=== PATIENT | male | born 1960 | race Caucasian/White ===

== ENCOUNTER → 2017-04-13 | Outpatient (CLI) | payer MEDICARE, BC ==
--- NOTE | 2017-04-13 14:45 | XR ---
EXAMINATION TYPE: XR lumbosacral spine min 4V DATE OF EXAM: 04/13/2017 COMPARISON: NONE HISTORY: Back pain radiating into legs TECHNIQUE: 5 view cervical spine FINDINGS: There is a wedge deformity of L1 with approximately 40% loss of anterior vertebral body hei ght. Disc heights are preserved. Vertebral body heights are preserved. Alignment is normal. No spondylolyt ic defects are evident facets are within normal limits. IMPRESSION: 1. 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
== END | disposition home or self-care (01) ==
LOC: RADXRMAIN 14:21
PROVIDERS: ATTEND Physical Medicine & Rehabilitation
DX: M48.56XA Collapsed vertebra, not elsewhere classified, lumbar region, initial encounter for fracture (principal)
CPT/HCPCS: 72110

== ENCOUNTER → 2018-07-13 | Outpatient (CLI) | payer MEDICARE, BC | END | disposition home or self-care (01) | LOC: LABMAIN 16:52 | PROVIDERS: ATTEND Internal Medicine | DX: Z53.9 Procedure and treatment not carried out, unspecified reason (principal) ==

== ENCOUNTER → 2018-07-30 | Outpatient (CLI) | payer MEDICARE, BC ==
--- NOTE | 2018-07-30 16:14 | US ---
EXAMINATION TYPE: US kidneys/renal and bladder DATE OF EXAM: 07/30/2018 COMPARISON: US 06/06/2016 CLINICAL HISTORY: N18.3 Chronic Kidney Disease. Difficult and limited exam due to overlying bowel gas EXAM MEASUREMENTS: Right Kidney: 10.2 x 4.4 x 4.2 cm Left Kidney: 11.2 x 4.7 x 4.8 cm Right Kidney: No hydronephrosis or masses seen . Mild cortical renal thinning. Left Kidney: Limited visualization due to overlying bowel gas. No hydronephrosis visualized. Mild co rtical renal thinning. Bladder: wnl as visualized, not fully distended Bilateral Jets seen: Yes There is no evidence for hydronephrosis at this point in time. The urinary bladder is anechoic. Bi lateral ureteral jets are seen. IMPRESSION: No hydronephrosis or nephrolithiasis. Mild cortical renal thinning of medical renal disease bilateral ly.
== END | disposition home or self-care (01) ==
LOC: RADUSWWP 14:42
PROVIDERS: ATTEND Internal Medicine
DX: N28.9 Disorder of kidney and ureter, unspecified (principal); N18.3 Chronic kidney disease, stage 3 (moderate)
CPT/HCPCS: 76770

== ENCOUNTER 2018-08-08 17:02 | Emergency (ER) | payer MEDICARE, BC ==
[2018-08-08 17:31] VITALS: RESP 18
--- NOTE | 2018-08-08 18:58 | ED ---
Abdominal Pain HPI - General Chief Complaint: Abdominal Pain Stated Complaint: abd pain Time Seen by Provider: 08/08/18 18:27 Source: patient, RN notes reviewed Mode of arrival: ambulatory Limitations: no limitations - History of Present Illness Initial Comments: This is a 57-year-old male who presents to the emergency department with chief complaint of left flank and abdominal pain. Patient states the pain developed today. He reports a constant dull ache with a "poking" with any movement. He denies fevers or chills, chest pain or shortness of breath, nausea or vomiting. Yesterday he had one episode of diarrhea. He denies urinary symptoms such as dysuria, hematuria, increased urinary frequency. - Related Data Home Medications Medication Instructions Recorded Confirmed LORazepam [Ativan] 1 mg PO HS PRN 05/21/14 08/08/18 Tapentadol HCl [Nucynta ER] 150 mg PO BID 05/21/14 08/08/18 Gabapentin [Neurontin] 300 mg PO BID 05/28/15 08/08/18 HYDROcodone/APAP 10-325MG [[place] 1 tab PO Q6H PRN 06/28/16 08/08/18 10-325] Prochlorperazine [Compazine] 10 mg PO Q6H PRN 06/28/16 08/08/18 Albuterol Inhaler [Ventolin Hfa 1 - 2 puff INHALATION RT-Q6H PRN 07/07/16 Inhaler] Ascorbic Acid [Vitamin C] 1,500 mg PO DAILY 07/07/16 08/08/18 Calcium Citrate 500 mg PO TID 07/07/16 08/08/18 Efavirenz/Emtricitab/Tenofovir 1 tab PO HS 07/07/16 08/08/18 [Atripla Tablet] Fluticasone Nasal [place] [Flonase 2 spray EA NOSTRIL DAILY PRN 07/07/16 08/08/18 Nasal [place]] Multivitamins, Thera [Multivitamin 1 tab PO DAILY 07/07/16 08/08/18 (formulary)] [place]-3 Fatty Acids/Fish Oil [Fish 2 cap PO DAILY 07/07/16 08/08/18 Oil 1,000 mg Softgel] Alendronate Sodium [Fosamax] 70 mg PO TU 08/08/18 08/08/18 Carboxymethylcellulose Sodium 15 ml LEFT EYE DAILY PRN 08/08/18 08/08/18 [Refresh Tears] Cholecalciferol (Vitamin D3) 2,000 unit PO DAILY 08/08/18 08/08/18 [Vitamin D3] Clindamycin Topical Soln 1 applic TOPICAL DAILY 08/08/18 08/08/18 [Cleocin-T Topical Soln] Famotidine [Pepcid] 20 mg PO DAILY 08/08/18 08/08/18 Ibuprofen [Advil] 400 - 800 mg PO Q8HR PRN 08/08/18 08/08/18 Promethazine [Phenergan] 25 mg PO Q6H PRN 08/08/18 08/08/18 Sertraline [Zoloft] 50 mg PO DAILY 08/08/18 08/08/18 diphenhydrAMINE [Benadryl] 25 mg PO HS PRN 08/08/18 08/08/18 Allergies Allergy/AdvReac Type Severity Reaction Status Date / Time Sulfa (Sulfonamide Allergy Rash/Hives Verified 08/08/18 18:41 Antibiotics) Review of Systems ROS Statement: Those systems with pertinent positive or pertinent negative responses have been documented in the HPI. ROS Other: All systems not noted in ROS Statement are negative. Past Medical History Past Medical History: COPD, GERD/Reflux, Osteoarthritis (OA), Skin Disorder Additional Past Medical History / Comment(s): Hx arrhythmia- not sure which rhythm History of Any Multi-Drug Resistant Organisms: None Reported Past Surgical History: Orthopedic Surgery Additional Past Surgical History / Comment(s): ORIF rt shoulder, nerve blocks to back,colonoscopy Additional Past Anesthesia/Blood Transfusion Reaction / Comment(s): states "has difficult time waking up with anesthesia".no hx blood transfusion. Past Psychological History: No Psychological Hx Reported Smoking Status: Current every day smoker Past Alcohol Use History: Occasional Past Drug Use History: None Reported - Past Family History Mother Family Medical History: Diabetes Mellitus Additional Family Medical History / Comment(s): arrhythmia,Crohn's Father History Unknown: Yes General Exam - General Exam Comments Initial Comments: General: Awake and alert, well-developed; in no apparent distress. HEENT: Head atraumatic, normocephalic. Pupils are equal, round and reactive to light. Extraocular movements intact. Oropharynx moist without erythema or exudate. Neck: Supple. Normal ROM. Cardiovascular: Regular rate and rhythm. No murmurs, rubs or gallops. Chest symmetrical. Respiratory: Lungs clear to auscultation bilaterally. No wheezes, rales or rhonchi. Normal respiratory effort with no use of accessory muscles. Abdomen: Soft, non-distended. Tenderness on palpation of left mid abdomen and left flank with guarding. No rigidity or rebound. Normal bowel sounds in all 4 quadrants. Musculoskeletal: Normal ROM, no tenderness bilateral upper and lower extremities. Skin: [place], warm and dry without rashes or lesions. Neurological: Alert and oriented x3. CN II-XII grossly intact. Speech is fluent and answers are appropriate. No focal neuro deficits. Psychiatric: Normal mood and affect. No overt signs of depression or anxiety noted. Limitations: no limitations Course Vital Signs 08/08/18 08/08/18 08/08/18 17:27 18:30 19:00 Temperature 98.7 F Pulse Rate 91 Respiratory 18 18 18 Rate Blood Pressure 94/73 104/75 O2 Sat by Pulse 98 97 99 Oximetry 08/08/18 08/08/18 08/08/18 19:30 21:00 22:00 Temperature Pulse Rate Respiratory 18 Rate Blood Pressure 97/66 99/70 97/69 O2 Sat by Pulse 99 98 Oximetry 08/08/18 08/09/18 23:00 00:03 Temperature 97.8 F Pulse Rate 75 Respiratory 18 Rate Blood Pressure 97/69 150/70 O2 Sat by Pulse 98 Oximetry - Reevaluation(s) Reevaluation #1: A computed tomography scan of the brain and pelvis was accidentally ordered by myself. A CT of the abdomen and pelvis was meant to be ordered, however the wrong box was checked. Patient reports that he did question the CT techs why they were scanning his brain. I spoke with the techs who performed the test; stated that they were also a bit confused but patient complained of his ears being plugged so thought that the CT of the brain and C-spine was not an inaccurate order. They followed through with the test, although this was unnecessary.I spoke with attending physicians, Dr. Prescott and Dr. Gorman to make them aware of this issue. I also spoke with the CT department to address not having patient charged for this unnecessary test. I spoke with patient who is in agreement for the correct test to be performed at this time. 08/08/18 22:44 Medical Decision Making - Medical Decision Making This is a 57-year-old male who presents to the emergency department with chief complaint of left sided abdominal pain. Patient reports that the pain started today. He describes it as a dull ache and feels "poking" with movement. On initial evaluation, patient was tender to the left side of the abdomen and flank. Laboratory studies revealed no significant abnormalities. Creatinine is is elevated, however this is consistent with patient's previous laboratory studies. On reevaluation, patient continued to complain of pain, but only with movement. I reexamined the patient and there appears to be a significant amount of pain on palpation of the left lower ribs as opposed to the abdomen. Case was discussed with attending physician, Dr. Gorman. Patient was sent for a computed tomography scan of the abdomen and pelvis without contrast. This revealed calcified gallstones but no cause for left-sided pain. Patient was evaluated by Dr. Gorman. He is in agreement that pain is from the chest wall. He will be discharged home at this time. Vitals are stable and patient is in no acute distress. Patient is instructed to follow up with his primary care provider. He is in agreement with plan and voices understanding. All questions answered. - Lab Data Result diagrams: 08/08/18 19:09 08/08/18 19:09 Lab Results 08/08/18 08/08/18 08/08/18 Range/Units 19:09 19:09 20:25 WBC 5.4 (3.8-10.6) k/uL RBC 4.26 L (4.30-5.90) m/uL Hgb 14.2 (13.0-17.5) gm/dL Hct 43.5 (39.0-53.0) % MCV 102.1 H (80.0-100.0) fL MCH 33.3 (25.0-35.0) pg MCHC 32.6 (31.0-37.0) g/dL RDW 14.8 (11.5-15.5) % Plt Count 311 (150-450) k/uL Neutrophils % 66 % Lymphocytes % 24 % Monocytes % 5 % Eosinophils % 3 % Basophils % 1 % Neutrophils # 3.6 (1.3-7.7) k/uL Lymphocytes # 1.3 (1.0-4.8) k/uL Monocytes # 0.3 (0-1.0) k/uL Eosinophils # 0.1 (0-0.7) k/uL Basophils # 0.0 (0-0.2) k/uL Macrocytosis Slight Sodium 142 (137-145) mmol/L Potassium 4.3 (3.5-5.1) mmol/L Chloride 111 H (98-107) mmol/L Carbon Dioxide 23 (22-30) mmol/L Anion Gap 8 mmol/L BUN 13 (9-20) mg/dL Creatinine 1.84 H (0.66-1.25) mg/dL Est GFR (CKD-EPI)AfAm 46 (>60 ml/min/1.73 sqM) Est GFR (CKD-EPI)NonAf 40 (>60 ml/min/1.73 sqM) Glucose 87 (74-99) mg/dL Calcium 8.3 L (8.4-10.2) mg/dL Total Bilirubin 0.3 (0.2-1.3) mg/dL AST 26 (17-59) U/L ALT 33 (21-72) U/L Alkaline Phosphatase 105 (38-126) U/L Total Protein 7.0 (6.3-8.2) g/dL Albumin 3.6 (3.5-5.0) g/dL Amylase 60 (30-110) U/L Lipase 235 (23-300) U/L Urine Color Light Yellow Urine Appearance Clear (Clear) Urine pH 7.5 (5.0-8.0) Ur Specific [place] 1.008 (1.001-1.035) Urine Protein 1+ H (Negative) Urine Glucose (UA) 2+ H (Negative) Urine Ketones Negative (Negative) Urine Blood Trace H (Negative) Urine Nitrite Negative (Negative) Urine Bilirubin Negative (Negative) Urine Urobilinogen <2.0 (<2.0) mg/dL Ur Leukocyte Esterase Negative (Negative) Urine WBC 1 (0-5) /hpf Ur Squamous Epith Cells <1 (0-4) /hpf Urine Bacteria Rare H (None) /hpf - Radiology Data Radiology results: report reviewed X-ray KUB impression: Nonacute abdomen. CT abdomen and pelvis without contrast impression: Small calcified gallstones. Pulmonary fibrotic changes at the lung bases. I do not see a cause for left- sided pain. Disposition Clinical Impression: Abdominal pain Disposition: HOME SELF-CARE Condition: Good Instructions: Abdominal Pain (ED) Additional Instructions: Please follow up with primary care provider within 1-2 days. Return to emergency department if symptoms should worsen or any concerns arise. Is patient prescribed a controlled substance at d/c from ED?: No Referrals: Brett Angel MD [Primary Care Provider] - 1-2 days Time of Disposition: 23:54
[2018-08-08 19:59] LABS: Basophils % (A) 1 %; Eosinophils # (A) 0.1 k/uL (0-0.7); Eosinophils % (A) 3 %; HCT 43.5 % (39.0-53.0); HGB 14.2 gm/dL (13.0-17.5); Lymphocytes # (A) 1.3 k/uL (1.0-4.8); Lymphocytes % (A) 24 %; MCH 33.3 pg (25.0-35.0); MCHC 32.6 g/dL (31.0-37.0); MCV 102.1 fL (80.0-100.0); Macrocytosis Slight; Mean Platelet Volume 6.9; Monocytes # (A) 0.3 k/uL (0-1.0); Monocytes % (A) 5 %; Neutrophils # (A) 3.6 k/uL (1.3-7.7); Neutrophils % (A) 66 %; Platelet Count 311 k/uL (150-450); RBC 4.26 m/uL (4.30-5.90); RDW 14.8 % (11.5-15.5); WBC 5.4 k/uL (3.8-10.6)
[2018-08-08 20:09] LABS: Albumin 3.6 g/dL (3.5-5.0); Calcium 8.3 mg/dL (8.4-10.2); Potassium 4.3 mmol/L (3.5-5.1); Total Bilirubin 0.3 mg/dL (0.2-1.3)
--- NOTE | 2018-08-08 20:51 | XR ---
EXAMINATION TYPE: XR KUB DATE OF EXAM: 08/08/2018 COMPARISON: NONE HISTORY: Left lower quadrant pain TECHNIQUE: 2 views FINDINGS: There is no sign of intestinal obstruction or pneumoperitoneum. Fecal pattern is normal. Th ere are no pathologic calcifications over the kidneys. IMPRESSION: Nonacute abdomen.
[2018-08-08 20:54] LABS: Appearance,Urine Clear (Clear); Bacteria,Urine Rare /hpf; Bilirubin,Urine Negative (Negative); Blood,Urine Trace (Negative); Color,Urine Light Yellow; Glucose,Urine (UA) 2+ (Negative); Ketones,Urine Negative (Negative); Leukocyte Esterase,Urine Negative (Negative); Nitrite,Urine Negative (Negative); PH, Urine 7.5 (5.0-8.0); Protein,Urine 1+ (Negative); Specific Gravity,Urine 1.008 (1.001-1.035); Squamous Epithelial Cell,Urine <1 /hpf (0-4); Urobilinogen,Urine <2.0 mg/dL (<2.0); WBC,Urine 1 /hpf (0-5)
--- NOTE | 2018-08-08 22:06 | CT ---
EXAMINATION TYPE: CT brain dex cristina con DATE OF EXAM: 08/08/2018 COMPARISON: 12/21/2010 HISTORY: Left sided ear pain and hearing loss. CT DLP: 944.3 mGycm Automated exposure control for dose reduction was used. TECHNIQUE: CT scan of the head and cervical spine are performed without contrast. FINDINGS: There is cerebral cortical atrophy. There is no mass effect or midline shift. There is no sign of intracranial hemorrhage. The calvarium is intact. Cervical vertebra have normal alignment. There is 50% compression deformity of C7 vertebral body with biconcave deformity consistent with osteomalacia. I see no acute fracture. The facet joints are inta ct. Skull base appears intact. There is 50% wedging of T3 and T4 vertebral bodies. There is 30% compr ession of T5. There is biconcave deformity consistent with osteomalacia. IMPRESSION: Cerebral atrophy. No acute intracranial abnormality. No change. Multiple old cervical and thoracic compression fractures. No acute fracture seen of the cervical spin e. No change.
--- NOTE | 2018-08-08 23:20 | CT ---
EXAMINATION TYPE: CT abdomen pelvis wo con DATE OF EXAM: 08/08/2018 COMPARISON: None HISTORY: Left sided pain. CT DLP: 371.9 mGycm Automated exposure control for dose reduction was used. TECHNIQUE: Helical acquisition of images was performed from the lung bases through the pelvis. FINDINGS: There is coarse interstitial infiltrate at both lung bases. There is probably pulmonary fibrosis. The re is no pleural effusion. There is small hiatal hernia. The remainder of the stomach appears normal. There is some calcificatio n of the pericardium. Liver spleen appear normal. There is no evidence of pancreatic mass. Bile ducts are not dilated. Gallbladder is contracted with 2 small calcified gallstones. There is no adrenal mass. Kidneys have normal size and contour. There is no hydronephrosis. Ureters a re not dilated. I see no intestinal wall thickening. There are no dilated loops. There is no mesenter ic adenopathy. There is no mesenteric edema. There is no inguinal hernia. Bladder distends smoothly. There is no pelvic mass. There is no free fluid in the pelvis. There is no evidence of free air. There is osteopenia. There is biconcave deformity of numerous lumbar vertebra. This is consistent with osteomalacia and multiple compression fractures. IMPRESSION: SMALL CALCIFIED GALLSTONES. PULMONARY FIBROTIC CHANGES AT THE LUNG BASES. I DO NOT SEE A CAUSE FOR LE FT-SIDED PAIN.
[2018-08-09 00:03] VITALS: BP 150/70; PULSE 75; TEMP 97.8
== END 2018-08-09 00:03 | disposition home or self-care (01) ==
LOC: EC 17:02
DX: R10.9 Unspecified abdominal pain (principal); K80.20 Calculus of gallbladder without cholecystitis without obstruction; J44.9 Chronic obstructive pulmonary disease, unspecified; K21.9 Gastro-esophageal reflux disease without esophagitis; Z79.899 Other long term (current) drug therapy; Z88.2 Allergy status to sulfonamides
CPT/HCPCS: 36415; 70450; 72125; 74018; 74176; 80053; 81001; 82150; 83690; 85025; 99284

== ENCOUNTER → 2018-10-08 | Outpatient (CLI) | payer MEDICARE, BC ==
[2018-10-08 14:30] LABS: HCT 47.3 % (39.0-53.0); HGB 14.9 gm/dL (13.0-17.5); MCH 33.2 pg (25.0-35.0); MCHC 31.5 g/dL (31.0-37.0); MCV 105.5 fL (80.0-100.0); Macrocytosis Moderate; Mean Platelet Volume 6.5; Platelet Count 269 k/uL (150-450); RBC 4.48 m/uL (4.30-5.90); RDW 15.8 % (11.5-15.5); WBC 6.5 k/uL (3.8-10.6)
[2018-10-08 14:40] LABS: Appearance,Urine Clear (Clear); Bilirubin,Urine Negative (Negative); Blood,Urine Small (Negative); Color,Urine Colorless; Glucose,Urine (UA) 3+ (Negative); Ketones,Urine Negative (Negative); Leukocyte Esterase,Urine Negative (Negative); Mucus,Urine Rare /hpf; Nitrite,Urine Negative (Negative); PH, Urine 6.5 (5.0-8.0); Protein,Urine 1+ (Negative); Specific Gravity,Urine 1.005 (1.001-1.035); Squamous Epithelial Cell,Urine <1 /hpf (0-4); Urobilinogen,Urine <2.0 mg/dL (<2.0); WBC,Urine <1 /hpf (0-5)
[2018-10-08 18:59] LABS: Iron Saturation 16.42 (15.00-50.00)
[2018-10-08 19:06] LABS: Vitamin D 25 Hydroxy 30.8 ng/mL (30.0-100.0)
[2018-10-08 19:34] LABS: Albumin 4.4 g/dL (3.80-4.90); Albumin/Globulin Ratio 1.83 (1.20-2.10); Anion Gap 6.3 mmol/L (4.00-12.00); Calcium 8.3 mg/dL (8.7-10.3); Carbon Dioxide 19.7 mmol/L (21.6-31.8); Globulin 2.4 g/dL (2.1-3.7); Magnesium 2.2 mg/dL (1.5-2.4); Phosphorus 1.7 mg/dL (2.4-5.1); Potassium 3.7 mmol/L (3.5-5.5); Total Bilirubin 0.3 mg/dL (0.3-1.2); Total Protein 6.8 g/dL (6.2-8.2); Uric Acid 2.2 mg/dL (3.7-8.7)
[2018-10-08 21:22] LABS: Total Protein,Urine Random 41.3 mg/dL (0.0-13.5)
[2018-10-08 21:23] LABS: Creatinine,Urine Random 32.5 mg/dL
== END ==
LOC: LABWHC1 13:41
PROVIDERS: ATTEND Internal Medicine
DX: N18.3 Chronic kidney disease, stage 3 (moderate) (principal); D63.1 Anemia in chronic kidney disease; E83.39 Other disorders of phosphorus metabolism; E55.9 Vitamin D deficiency, unspecified; M10.9 Gout, unspecified; R80.9 Proteinuria, unspecified
CPT/HCPCS: 36415; 80053; 81001; 82306; 82570; 82728; 83540; 83550; 83735; 83970; 84100; 84156; 84550; 85027

== ENCOUNTER → 2018-10-26 | Outpatient (CLI) | payer MEDICARE, BC ==
[2018-10-27 02:37] LABS: Albumin 4.4 g/dL (3.80-4.90); Albumin/Globulin Ratio 1.76 (1.20-2.10); Anion Gap 8.1 mmol/L (4.00-12.00); Calcium 8.1 mg/dL (8.7-10.3); Carbon Dioxide 22.9 mmol/L (21.6-31.8); Globulin 2.5 g/dL (1.6-3.3); Phosphorus 2.7 mg/dL (2.4-5.1); Potassium 3.7 mmol/L (3.5-5.5); Total Bilirubin 0.4 mg/dL (0.3-1.2); Total Protein 6.9 g/dL (6.2-8.2)
== END | disposition home or self-care (01) ==
LOC: LABWHC1 17:01
PROVIDERS: ATTEND Internal Medicine
DX: N18.3 Chronic kidney disease, stage 3 (moderate) (principal)
CPT/HCPCS: 36415; 80053; 84100

== ENCOUNTER 2019-01-11 19:29 | Emergency (ER) | payer OTHER, MEDICARE, BC ==
[2019-01-11 19:37] VITALS: RESP 18; TEMP 98.2
[2019-01-11 20:06] LABS: Basophils % (A) 0 %; Eosinophils # (A) 0.1 k/uL (0-0.7); Eosinophils % (A) 2 %; HCT 48.6 % (39.0-53.0); HGB 15.6 gm/dL (13.0-17.5); Lymphocytes # (A) 1.9 k/uL (1.0-4.8); Lymphocytes % (A) 29 %; MCH 34.2 pg (25.0-35.0); MCV 106.7 fL (80.0-100.0); Macrocytosis Marked; Monocytes # (A) 0.4 k/uL (0-1.0); Monocytes % (A) 6 %; Neutrophils % (A) 61 %; Platelet Count 225 k/uL (150-450); RBC 4.55 m/uL (4.30-5.90); RDW 15.8 % (11.5-15.5); WBC 6.6 k/uL (3.8-10.6)
[2019-01-11 20:15] LABS: ALT 22 U/L (21-72); AST 22 U/L (17-59); Albumin 4.1 g/dL (3.5-5.0); Alcohol <10 mg/dL; Alkaline Phosphatase 130 U/L (38-126); Anion Gap 9 mmol/L; Blood Urea Nitrogen 21 mg/dL (9-20); Calcium 8.5 mg/dL (8.4-10.2); Carbon Dioxide 17 mmol/L (22-30); Chloride 116 mmol/L (98-107); Glucose 106 mg/dL (74-99); Potassium 3.8 mmol/L (3.5-5.1); Sodium 142 mmol/L (137-145); Total Bilirubin 0.7 mg/dL (0.2-1.3); Total Protein 7.5 g/dL (6.3-8.2)
[2019-01-11 20:19] LABS: INR 0.9 (<1.2); Partial Thromboplastin Time 27.2 sec (22.0-30.0); Prothrombin Time 9.8 sec (9.0-12.0)
[2019-01-11 20:26] LABS: Troponin I <0.012 ng/mL (0.000-0.034)
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
[2019-01-11 20:43] LABS: Creatine Kinase 51 U/L (55-170)
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
[2019-01-11 20:53] LABS: Creatine Kinase MB 0.4 ng/mL (0.0-2.4)
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
[2019-01-11] MEDS ORDERED: ONDANSETRON 4 MG/2 ML VIAL IVP STA (22:10)
[2019-01-11] MEDS ORDERED: ACETAMINOPHEN TAB 500 MG TAB PO STA (22:13)
[2019-01-11 22:41] VITALS: BP 122/80; PULSE 60
== END 2019-01-11 22:40 | disposition home or self-care (01) ==
LOC: EC 19:29
DX: S20.211A Contusion of right front wall of thorax, initial encounter (principal); S20.212A Contusion of left front wall of thorax, initial encounter; N18.9 Chronic kidney disease, unspecified; M54.2 Cervicalgia; K21.9 Gastro-esophageal reflux disease without esophagitis; F17.200 Nicotine dependence, unspecified, uncomplicated; Z88.2 Allergy status to sulfonamides; Z79.891 Long term (current) use of opiate analgesic; Z79.899 Other long term (current) drug therapy; V49.49XA Driver injured in collision with other motor vehicles in traffic accident, initial encounter; Y92.410 Unspecified street and highway as the place of occurrence of the external cause
CPT/HCPCS: 36415; 86900; 86901; 80053; 82550; 82553; 84484; 85025; 85610; 85730; 86850; 80320; 72020; 72170; 71045; 72125; 99284; 96374; J2405

== ENCOUNTER → 2019-02-06 | Outpatient (CLI) | payer MEDICARE, BC ==
[2019-02-06 16:18] LABS: Appearance,Urine Clear (Clear); Bilirubin,Urine Negative (Negative); Blood,Urine Small (Negative); Color,Urine Light Yellow; Glucose,Urine (UA) 3+ (Negative); Ketones,Urine Negative (Negative); Leukocyte Esterase,Urine Negative (Negative); Mucus,Urine Rare /hpf; Nitrite,Urine Negative (Negative); PH, Urine 6.5 (5.0-8.0); Protein,Urine 2+ (Negative); RBC,Urine 1 /hpf (0-5); Specific Gravity,Urine 1.012 (1.001-1.035); Urobilinogen,Urine <2.0 mg/dL (<2.0); WBC,Urine 1 /hpf (0-5)
[2019-02-06 16:32] LABS: Anisocytosis Slight; HCT 46.7 % (39.0-53.0); HGB 14.7 gm/dL (13.0-17.5); MCH 33.5 pg (25.0-35.0); MCHC 31.4 g/dL (31.0-37.0); MCV 106.6 fL (80.0-100.0); Macrocytosis Marked; Mean Platelet Volume 7.4; Platelet Count 297 k/uL (150-450); RBC 4.38 m/uL (4.30-5.90); RDW 16.3 % (11.5-15.5); WBC 6.3 k/uL (3.8-10.6)
[2019-02-06 23:18] LABS: Anti-DNA, DS unit <1.0 IU/mL; DNA Double-Stranded NEGATIVE (NEGATIVE)
[2019-02-06 23:50] LABS: Albumin 4.3 g/dL (3.80-4.90); Albumin/Globulin Ratio 1.79 (1.60-3.17); Carbon Dioxide 18.1 mmol/L (21.6-31.8); Globulin 2.4 g/dL (1.6-3.3); Magnesium 2.3 mg/dL (1.5-2.4); Phosphorus 2.3 mg/dL (2.4-5.1); Potassium 3.4 mmol/L (3.5-5.5); Total Bilirubin 0.3 mg/dL (0.3-1.2); Total Protein 6.7 g/dL (6.2-8.2); Uric Acid 1.9 mg/dL (3.7-8.7)
[2019-02-07 00:17] LABS: Total Volume 24 Hour,Urine 3000 mL
[2019-02-07 00:21] LABS: Anion Gap 6.9 mmol/L (4.00-12.00)
[2019-02-07 00:48] LABS: Iron Saturation 22.89 (15.00-50.00)
[2019-02-07 00:51] LABS: Vitamin D 25 Hydroxy 23.9 ng/mL (30.0-100.0)
[2019-02-07 01:03] LABS: Parathyroid Hormone Intact 200.2 pg/mL (14.0-72.0)
[2019-02-07 01:38] LABS: Creatinine,Urine Random 51.2 mg/dL
[2019-02-07 01:44] LABS: Hepatitis A Antibody IgM Non-Reactive (Non-Reactive); Hepatitis B Core IgM Non-Reactive (Non-Reactive)
[2019-02-07 01:58] LABS: Total Protein,Urine Random 96.1 mg/dL (0.0-13.5)
[2019-02-07 14:01] LABS: C-ANCA <1:20 Titer (<1:20); P-ANCA <1:20 Titer (<1:20)
== END ==
LOC: LABWHC1 15:34
PROVIDERS: ATTEND Internal Medicine
DX: N18.3 Chronic kidney disease, stage 3 (moderate) (principal); R53.83 Other fatigue; D63.1 Anemia in chronic kidney disease; N39.0 Urinary tract infection, site not specified; E21.3 Hyperparathyroidism, unspecified; E55.9 Vitamin D deficiency, unspecified; M10.9 Gout, unspecified; R80.9 Proteinuria, unspecified
CPT/HCPCS: 36415; 80053; 80074; 81001; 81050; 82306; 82570; 82728; 83516; 83540; 83550; 83735; 83883; 83970; 84100; 84156; 84166; 84550; 85027; 86038; 86160; 86162; 86225; 86255; 86334

== ENCOUNTER → 2019-10-11 | Outpatient (CLI) | payer MEDICARE, BC ==
[~2019-10-11] MED LIST: DENOSUMAB 60 MG/ML 1 ML SYRINGE SQ ONE
[2019-10-11 14:17] VITALS: BP 101/67; PULSE 91; RESP 16; TEMP 98.2
== END | disposition home or self-care (01) ==
LOC: PROCWHC3 13:37
PROVIDERS: ATTEND Family Medicine
DX: M81.0 Age-related osteoporosis without current pathological fracture (principal)
CPT/HCPCS: 96372

== ENCOUNTER → 2019-10-29 | Outpatient (CLI) | payer MEDICARE, BC ==
--- NOTE | 2019-10-30 17:08 | BD ---
EXAMINATION TYPE: Axial Bone Density DATE OF EXAM: 10/29/2019 COMPARISON: NONE CLINICAL HISTORY: Height: 5 FT 3 IN Weight: 140 FRAX RISK QUESTIONS: Alcohol (3 or more units per day): NO Family History (Parent hip fracture): NO Glucocorticoids (More than 3mos): NO (Ex: prednisone, prednisolone, methylprednisolone, dexamethasone, and hydrocortisone). History of Fracture in Adulthood: YES Secondary Osteoporosis: 1. Type 1 Diabetes: NO 2. Hyperthyroidism: NO 3. Menopause before 45: NA 4. Malnutrition: NO 5. Chronic liver disease: NO Rheumatoid Arthritis: YES Current Tobacco Use: YES RISK FACTORS HISTORY OF: Active: NO Lost more than 2 inches in height since high school: YES MEDICATIONS: Osteoporosis Medications: CURRENTLY ON PROLIA WAS ON FOSAMAX Which medication: 3-4 YEARS How Long: Additional Medications: PROLIA, GABAPENTIN, NUCYNTA, FAMCICLOVIR, FAMOTIDINE, LORAZAPAM, PROMETHAZIN E PRN, PROCHLORPER PRN, FLUTICASONE PRN, VENTOLIN PRN, D3, SINGULAIR, Additional History: OSTEOPOROSIS, KERATITIS SICCA, TINNITUS, LUNG DISEASE, PERIPHERAL NEUROPATHY, SCO LIOSIS EXAM MEASUREMENTS: Bone mineral densitometry was performed using the [employer]. Bone mineral density as measured about the Lumbar spine is: ----- L1-L4(G/cm2): 0.858 T Score Values are as follows: ----- L2: -2.5 ----- L3: -2.8 ----- L4: -3.2 ----- L1-L4: -2.7 Bone mineral density has: DECREASED -19.8 % since study of: 2015 Bone mineral density about the R hip (g/cm2): 0.806 Bone mineral density about the L hip (g/cm2): 0.725 T Score values are as follows: -----R Neck: -1.7 -----L Neck: -2.3 -----R Total: -2.1 -----L Total: -1.7 Bone mineral density has: DECREASED -10.5 % since study of: 2016 IMPRESSION: Osteoporosis (T Score less than -2.5). There is increased fracture risk and therapy is usually indicated based on age. Re-Screen 1-2 years. NOTE: T-SCORE=SD OF THE YOUNG ADULT MEAN.
== END | disposition home or self-care (01) ==
LOC: RADBDWWP 14:50
PROVIDERS: ATTEND Family Medicine
DX: M81.0 Age-related osteoporosis without current pathological fracture (principal); M18.0 Bilateral primary osteoarthritis of first carpometacarpal joints
CPT/HCPCS: 77080

== ENCOUNTER → 2019-10-29 | Outpatient (CLI) | payer MEDICARE, BC ==
--- NOTE | 2019-10-29 15:37 | US ---
EXAMINATION TYPE: US kidneys/renal and bladder DATE OF EXAM: 10/29/2019 COMPARISON: NONE CLINICAL HISTORY: N18.3 chronic kidney stage 3. EXAM MEASUREMENTS: Right Kidney: 10.5 x 4.4 x 4.3 cm Left Kidney: 10.3 x 3.6 x 4.1 cm Right Kidney: No hydronephrosis or masses seen Left Kidney: No hydronephrosis or masses seen Bladder: wnl Bilateral Jets seen: Yes Normal Post Void Residual: Decreased cortical medullary differentiation and mild cortical renal thinning with lobular contours o f the kidneys. There is no evidence for hydronephrosis at this point in time. No nephrolithiasis is seen. No masses are identified. The urinary bladder is anechoic. Bilateral ureteral jets are seen. IMPRESSION: Sonographic sequela medical renal disease as seen on the prior with no hydronephrosis or nephrolithiasis.
== END | disposition home or self-care (01) ==
LOC: RADUSWWP 14:47
PROVIDERS: ATTEND Internal Medicine
DX: N28.89 Other specified disorders of kidney and ureter (principal); N18.3 Chronic kidney disease, stage 3 (moderate)
CPT/HCPCS: 76770

== ENCOUNTER → 2019-11-22 | Outpatient (CLI) | payer MEDICARE, BC ==
[2019-11-22 16:10] LABS: Anisocytosis Slight; Basophils % (A) 0 %; Eosinophils # (A) 0.1 k/uL (0-0.7); Eosinophils % (A) 1 %; HCT 37.3 % (39.0-53.0); HGB 11.8 gm/dL (13.0-17.5); Lymphocytes % (A) 48 %; MCHC 31.8 g/dL (31.0-37.0); MCV 103.8 fL (80.0-100.0); Macrocytosis Moderate; Mean Platelet Volume 7.5; Monocytes # (A) 0.2 k/uL (0-1.0); Monocytes % (A) 4 %; Neutrophils # (A) 2.8 k/uL (1.3-7.7); Neutrophils % (A) 45 %; Platelet Count 277 k/uL (150-450); RBC 3.59 m/uL (4.30-5.90); RDW 16.4 % (11.5-15.5); WBC 6.2 k/uL (3.8-10.6)
[2019-11-22 23:30] LABS: African American GFR (CKD) 22.3 (60.0-200.0); Albumin 4.4 g/dL (3.80-4.90); Albumin/Globulin Ratio 1.52 (1.60-3.17); Anion Gap 7.2 mmol/L (4.00-12.00); Calcium 7.9 mg/dL (8.7-10.3); Carbon Dioxide 21.8 mmol/L (21.6-31.8); Globulin 2.9 g/dL (1.6-3.3); Non-African American GFR(CKD) 19.2 (60.0-200.0); Total Bilirubin 0.4 mg/dL (0.3-1.2); Total Protein 7.3 g/dL (6.2-8.2)
[2019-11-23 11:09] LABS: T4/T8 Ratio (CD4:CD8) 0.2 (1.0-3.7)
[2019-11-25 15:06] LABS: HIV-1 RNA Not detected (Not detected); HIV-1 RNA, Quant <40 Copies/mL (<40)
== END | disposition home or self-care (01) ==
LOC: LABWHC1 15:52
PROVIDERS: ATTEND Internal Medicine Infectious Disease
DX: B20 Human immunodeficiency virus [HIV] disease (principal); Z88.2 Allergy status to sulfonamides
CPT/HCPCS: 36415; 80053; 85025; 86360; 87536

== ENCOUNTER → 2019-12-02 | Outpatient (CLI) | payer MEDICARE, BC ==
[2019-12-02 15:54] LABS: Basophils % (A) 1 %; Eosinophils # (A) 0.1 k/uL (0-0.7); Eosinophils % (A) 1 %; HGB 12.3 gm/dL (13.0-17.5); Lymphocytes # (A) 2.6 k/uL (1.0-4.8); Lymphocytes % (A) 42 %; MCH 33.1 pg (25.0-35.0); MCHC 31.5 g/dL (31.0-37.0); MCV 104.9 fL (80.0-100.0); Macrocytosis Moderate; Monocytes # (A) 0.2 k/uL (0-1.0); Monocytes % (A) 4 %; Neutrophils # (A) 3.1 k/uL (1.3-7.7); Neutrophils % (A) 51 %; Platelet Count 280 k/uL (150-450); RBC 3.72 m/uL (4.30-5.90); RDW 15.4 % (11.5-15.5); WBC 6.2 k/uL (3.8-10.6)
[2019-12-02 16:05] LABS: INR 0.9 (<1.2); Partial Thromboplastin Time 25.7 sec (22.0-30.0); Prothrombin Time 9.9 sec (9.0-12.0)
[2019-12-03 01:01] LABS: African American GFR (CKD) 17.7 (60.0-200.0); Non-African American GFR(CKD) 15.2 (60.0-200.0); Potassium 4.3 mmol/L (3.5-5.5)
== END | disposition home or self-care (01) ==
LOC: LABWHC1 14:58
PROVIDERS: ATTEND Internal Medicine
DX: N18.3 Chronic kidney disease, stage 3 (moderate) (principal)
CPT/HCPCS: 36415; 80051; 82565; 84520; 85025; 85610; 85730; 86850; 86900; 86901

== ENCOUNTER 2019-12-03 07:43 | Day surgery (SDC) | payer MEDICARE, BC ==
[2019-12-03] MEDS ORDERED: DESMOPRESSIN ACETATE 19 MCG in SODIUM CHLORIDE 0.9% 50 ML IVPB ONE (08:15)
[2019-12-03] MEDS ORDERED: ALPRAZolam 0.5 MG TAB PO ONE (08:17)
[2019-12-03 08:33] VITALS: TEMP 97.9
[2019-12-03] MEDS ORDERED: HYDROcodone/APAP 10-325MG 1 EACH TAB PO PRN (11:25)
[2019-12-03] MEDS ORDERED: GABAPENTIN 300 MG CAP PO PRN (11:25)
[2019-12-03] MEDS ORDERED: SODIUM CHLORIDE 0.9% 500 ML 500 ML IV ONE (12:31)
--- NOTE | 2019-12-03 13:10 | CT ---
EXAMINATION TYPE: CT biopsy renal LT DATE OF EXAM: 12/03/2019 HISTORY: Renal failure, chronic kidney disease stage III COMPARISON: None Maximal barrier technique was utilized, hand hygiene obtained with soap and water. The skin overlyin g a suitable path to the left kidney lower pole was localized using CT and the overlying skin was pre pped and draped. Lidocaine used for local anesthesia. A skin dora made with a scalpel. Using CT gu idance, access was gained to the lower pole left renal cortex with a 17-gauge guide subsequently a co axial placement of an 18 age core needle. Core specimen submitted to cytology. 4 pass(es) performed in all. Following the procedure no immediate complications. The patient is discharged in stable c ondition. Hemostasis achieved. IMPRESSION: SUCCESSFUL CT GUIDED BIOPSY LOWER POLE LEFT RENAL CORTEX BIOPSY. PATHOLOGY PENDING. THIS PROCEDURE WAS PERFORMED BY THE UNDERSIGNED.
[2019-12-03 13:24] VITALS: RESP 18
[2019-12-03 14:59] VITALS: BP 104/62; PULSE 88
== END 2019-12-03 15:01 | disposition home or self-care (01) ==
LOC: RADPROMAIN 07:43
PROVIDERS: ATTEND Internal Medicine
DX: N17.0 Acute kidney failure with tubular necrosis (principal); N18.3 Chronic kidney disease, stage 3 (moderate); B20 Human immunodeficiency virus [HIV] disease; F17.200 Nicotine dependence, unspecified, uncomplicated
CPT/HCPCS: 50200; 77012; J2597

== ENCOUNTER → 2020-04-14 | Outpatient (CLI) | payer MEDICARE, BC ==
[2020-04-14 14:29] LABS: Amorphous Sediment,Urine Rare /hpf; Appearance,Urine Clear (Clear); Bilirubin,Urine Negative (Negative); Blood,Urine Trace (Negative); Color,Urine Light Yellow; Glucose,Urine (UA) 3+ (Negative); Hyaline Casts,Urine 1 /lpf (0-2); Ketones,Urine Negative (Negative); Leukocyte Esterase,Urine Negative (Negative); Mucus,Urine Rare /hpf; Nitrite,Urine Negative (Negative); Protein,Urine 1+ (Negative); RBC,Urine 2 /hpf (0-5); Urobilinogen,Urine <2.0 mg/dL (<2.0); WBC,Urine 1 /hpf (0-5)
[2020-04-14 14:32] LABS: Basophils % (A) 1 %; Eosinophils # (A) 0.1 k/uL (0-0.7); Eosinophils % (A) 1 %; HCT 39.6 % (39.0-53.0); HGB 13.1 gm/dL (13.0-17.5); Lymphocytes # (A) 2.6 k/uL (1.0-4.8); Lymphocytes % (A) 39 %; MCH 35.1 pg (25.0-35.0); MCHC 33.1 g/dL (31.0-37.0); Macrocytosis Moderate; Mean Platelet Volume 7.2; Monocytes # (A) 0.2 k/uL (0-1.0); Monocytes % (A) 4 %; Neutrophils # (A) 3.6 k/uL (1.3-7.7); Neutrophils % (A) 54 %; Platelet Count 276 k/uL (150-450); RBC 3.74 m/uL (4.30-5.90); RDW 14.2 % (11.5-15.5); WBC 6.6 k/uL (3.8-10.6)
[2020-04-14 14:52] LABS: Protein/Creatinine Ratio,Urine 1.608
[2020-04-14 20:23] LABS: Ferritin 259.8 ng/mL (22.0-322.0)
[2020-04-14 21:33] LABS: % Iron Saturation 26.42 (15.00-50.00); African American GFR (CKD) 20.8 (60.0-200.0); Albumin 4.2 g/dL (3.80-4.90); Albumin/Globulin Ratio 1.45 (1.60-3.17); Anion Gap 7.1 mmol/L (4.00-12.00); BUN/Creat Ratio 9.14 Ratio (12.00-20.00); Calcium 9.2 mg/dL (8.7-10.3); Carbon Dioxide 22.9 mmol/L (21.6-31.8); Globulin 2.9 g/dL (1.6-3.3); Magnesium 2.1 mg/dL (1.5-2.4); Non-African American GFR(CKD) 17.9 (60.0-200.0); Phosphorus 3.2 mg/dL (2.4-5.1); Potassium 4.4 mmol/L (3.5-5.5); Total Bilirubin 0.4 mg/dL (0.3-1.2); Total Protein 7.1 g/dL (6.2-8.2); Uric Acid 3.3 mg/dL (3.7-8.7)
[2020-04-14 22:38] LABS: HIV 2 AB Non-Reactive (Non-Reactive); HIV AB P24 REACTIVE (Non-Reactive); HIV P24 AG Non-Reactive (Non-Reactive)
[2020-04-15 11:59] LABS: T4/T8 Ratio (CD4:CD8) 0.2 (1.0-3.7)
[2020-04-20 08:07] LABS: HIV1D REACTIVE
[2020-04-20 08:09] LABS: HIV2D INDTRMNT
== END | disposition home or self-care (01) ==
LOC: LABWHC1 13:38
PROVIDERS: ATTEND Internal Medicine Infectious Disease
DX: B20 Human immunodeficiency virus [HIV] disease (principal); N18.3 Chronic kidney disease, stage 3 (moderate); D63.1 Anemia in chronic kidney disease; N39.0 Urinary tract infection, site not specified; R80.9 Proteinuria, unspecified; N25.81 Secondary hyperparathyroidism of renal origin; E55.9 Vitamin D deficiency, unspecified; M10.9 Gout, unspecified
CPT/HCPCS: 36415; 80053; 81001; 82306; 82570; 82728; 83540; 83550; 83735; 83970; 84100; 84156; 84550; 85025; 86360; 87389; 87390

== ENCOUNTER → 2020-04-29 | Outpatient (CLI) | payer MEDICARE, BC ==
[~2020-04-29] MED LIST changes: +DENOSUMAB 60 MG/ML 1 ML SYRINGE SQ NR; -DENOSUMAB 60 MG/ML 1 ML SYRINGE SQ ONE
[2020-05-01 09:30] VITALS: BP 103/61; PULSE 84; RESP 16; TEMP 98.4
== END | disposition home or self-care (01) ==
LOC: PROCWHC3 12:37
PROVIDERS: ATTEND Nurse Practitioner Family
DX: M81.0 Age-related osteoporosis without current pathological fracture (principal)
CPT/HCPCS: 96372; J0897

== ENCOUNTER → 2020-07-06 | Outpatient (CLI) | payer MEDICARE, BC | END | disposition home or self-care (01) | LOC: LABWHC1 14:40 | PROVIDERS: ATTEND Family Medicine | DX: Z03.818 Encounter for observation for suspected exposure to other biological agents ruled out (principal) | CPT/HCPCS: U0003; C9803 ==

== ENCOUNTER → 2020-11-18 | Outpatient (CLI) | payer MEDICARE, BC ==
[2020-11-18 16:48] LABS: Basophils % (A) 1 %; Eosinophils # (A) 0.1 k/uL (0-0.7); Eosinophils % (A) 2 %; HCT 40.8 % (39.0-53.0); HGB 13.6 gm/dL (13.0-17.5); Lymphocytes # (A) 2.3 k/uL (1.0-4.8); Lymphocytes % (A) 35 %; MCH 33.6 pg (25.0-35.0); MCHC 33.4 g/dL (31.0-37.0); MCV 100.8 fL (80.0-100.0); Mean Platelet Volume 7.2; Monocytes # (A) 0.3 k/uL (0-1.0); Monocytes % (A) 5 %; Neutrophils # (A) 3.7 k/uL (1.3-7.7); Neutrophils % (A) 56 %; Platelet Count 227 k/uL (150-450); RBC 4.04 m/uL (4.30-5.90); RDW 13.6 % (11.5-15.5); WBC 6.5 k/uL (3.8-10.6)
[2020-11-19 02:07] LABS: African American GFR (CKD) 17.5 (60.0-200.0); Albumin 4.5 g/dL (3.80-4.90); Albumin/Globulin Ratio 2.05 (1.60-3.17); Anion Gap 9.8 mmol/L (4.00-12.00); BUN/Creat Ratio 8.75 Ratio (12.00-20.00); Calcium 9.1 mg/dL (8.7-10.3); Carbon Dioxide 25.2 mmol/L (21.6-31.8); Globulin 2.2 g/dL (1.6-3.3); Non-African American GFR(CKD) 15.1 (60.0-200.0); Potassium 4.2 mmol/L (3.5-5.5); Total Bilirubin 0.4 mg/dL (0.3-1.2); Total Protein 6.7 g/dL (6.2-8.2)
[2020-11-19 21:21] LABS: HIV-1 RNA Not detected (Not detected); HIV-1 RNA, Quant <40 Copies/mL (<40)
== END | disposition home or self-care (01) ==
LOC: LABWHC1 15:34
PROVIDERS: ATTEND Internal Medicine Infectious Disease
DX: B20 Human immunodeficiency virus [HIV] disease (principal)
CPT/HCPCS: 36415; 80053; 85025; 86360; 87536

== ENCOUNTER → 2020-11-23 | Outpatient (CLI) | payer MEDICARE, BC ==
[2020-11-23 14:33] VITALS: BP 115/78; PULSE 91; RESP 16; TEMP 98.6
== END | disposition home or self-care (01) ==
LOC: PROCWHC3 13:35
PROVIDERS: ATTEND Nurse Practitioner Family
DX: M81.0 Age-related osteoporosis without current pathological fracture (principal)
CPT/HCPCS: 96372; J0897

== ENCOUNTER → 2021-05-24 | Outpatient (CLI) | payer MEDICARE, BC ==
[2021-05-24 14:12] VITALS: BP 121/75; PULSE 90; RESP 16; TEMP 98.7
== END ==
LOC: PROCWHC3 14:03
PROVIDERS: ATTEND Nurse Practitioner Family
DX: M81.0 Age-related osteoporosis without current pathological fracture (principal); Z88.2 Allergy status to sulfonamides; Z87.891 Personal history of nicotine dependence
CPT/HCPCS: 96372; J0897

== ENCOUNTER → 2021-11-26 | Outpatient (CLI) | payer MEDICARE, BC ==
[2021-11-26 13:06] VITALS: BP 126/76; PULSE 102; RESP 16; TEMP 98.1
[2021-11-26] MEDS: DENOSUMAB 60 MG/ML 1 ML SYRINGE SQ NR (13:06)
== END ==
LOC: PROCWHC3 12:52
PROVIDERS: ATTEND Nurse Practitioner Family
DX: M81.0 Age-related osteoporosis without current pathological fracture (principal); Z87.891 Personal history of nicotine dependence; Z88.2 Allergy status to sulfonamides

== ENCOUNTER → 2022-04-18 | Outpatient (CLI) | payer MEDICARE, BC ==
[2022-04-18 16:07] LABS: Appearance,Urine Clear (Clear); Bilirubin,Urine Negative (Negative); Blood,Urine Trace (Negative); Color,Urine Light Yellow; Glucose,Urine (UA) 1+ (Negative); Ketones,Urine Negative (Negative); Leukocyte Esterase,Urine Negative (Negative); Nitrite,Urine Negative (Negative); PH, Urine 7.5 (5.0-8.0); Protein,Urine 1+ (Negative); RBC,Urine 1 /hpf (0-5); Specific Gravity,Urine 1.007 (1.001-1.035); Squamous Epithelial Cell,Urine <1 /hpf (0-4); Urobilinogen,Urine <2.0 mg/dL (<2.0); WBC,Urine <1 /hpf (0-5)
[2022-04-18 23:29] LABS: Basophils # (A) 0.03 X 10*3/uL (0.00-0.10); Basophils % (A) 0.5 %; Eosinophils # (A) 0.11 X 10*3/uL (0.04-0.35); Eosinophils % (A) 1.7 %; HCT 42.8 % (39.6-50.0); HGB 14.5 g/dL (13.0-17.0); Immature Grans, Automated 0.5 %; Lymphocytes # (A) 2.62 X 10*3/uL (0.90-5.00); Lymphocytes % (A) 41.4 %; MCH 32.7 pg (27.0-32.0); MCHC 33.9 g/dL (32.0-37.0); MCV 96.4 fL (80.0-97.0); Mean Platelet Volume 10.3 fL (9.5-12.2); Monocytes % (A) 6.3 %; NRBC Per 100 WBC 0 /100 WBCS (0.0-0.0); Neutrophils # (A) 3.14 X 10*3/uL (1.80-7.70); Neutrophils % (A) 49.6 %; Platelet Count 222 X 10*3/uL (140-440); RBC 4.44 X 10*6/uL (4.40-5.60); RDW 13.9 % (11.5-14.5); WBC 6.33 X 10*3/uL (4.50-10.00)
[2022-04-18 23:59] LABS: % Iron Saturation 27.8 (15.00-50.00); African American GFR (CKD) 22.5 (60.0-200.0); Albumin 4.5 g/dL (3.8-4.9); Albumin/Globulin Ratio 1.88 (1.60-3.17); Anion Gap 11.6 mmol/L (10.00-18.00); BUN/Creat Ratio 5.25 Ratio (12.00-20.00); Calcium 9.5 mg/dL (8.7-10.3); Carbon Dioxide 23.4 mmol/L (20.0-27.5); Globulin 2.4 g/dL (1.6-3.3); Magnesium 2.4 mg/dL (1.5-2.4); Non-African American GFR(CKD) 19.4 (60.0-200.0); Phosphorus 2.8 mg/dL (2.4-5.1); Potassium 4.3 mmol/L (3.5-5.5); Total Bilirubin 0.4 mg/dL (0.30-1.20); Total Protein 6.8 g/dL (6.2-8.2)
[2022-04-19 09:34] LABS: Urine Creatinine 41.8 mg/dL (39.0-259.0)
== END | disposition home or self-care (01) ==
LOC: LABWHC1 14:53
PROVIDERS: ATTEND Internal Medicine Nephrology
DX: N18.4 Chronic kidney disease, stage 4 (severe) (principal); D64.9 Anemia, unspecified; N39.0 Urinary tract infection, site not specified; E21.3 Hyperparathyroidism, unspecified; E55.9 Vitamin D deficiency, unspecified; M10.9 Gout, unspecified
CPT/HCPCS: 36415; 80053; 81001; 82043; 82306; 82570; 82728; 83540; 83550; 83735; 83970; 84100; 84550; 85025